=== PATIENT | male | born 1980 | race Caucasian/White ===

== ENCOUNTER 2022-02-09 14:18 | Emergency (ER) | payer OTHER, SELFPAY ==
[2022-02-09 14:36] VITALS: BP 178/105; PULSE 91; RESP 18; TEMP 36.1; O2SAT 97; BMI 30.4
--- NOTE | 2022-02-09 15:39 | ED_ITS ---
HPI - Eye Problem General: Chief complaint: Eye Problems Stated complaint: something is right eye Time Seen by Provider: 02/09/22 15:12 Source: patient Mode of arrival: ambulatory Limitations: no limitations History of Present Illness: Patient is a 41-year-old male who presents to ED today with a complaint of a possible foreign body to his right eye. Patient states he was power washing his mower yesterday when he felt something flick into his right eye. He has tried irrigating without success. No visual changes. No drainage. Tetanus up-to-date. chief complaint: foreign body Onset (ago): day(s) (yesterday) Onset description: sudden Duration: constant Location: right eye Eye Symptoms: foreign body sensation Place: home Severity: mild Associated symptoms: Reports no associated symptoms Treatments Prior to Arrival: irrigated eye Related Data: Patient tetanus UTD: Yes Review of Systems Eyes: Reports: eye discomfort; Denies: change in vision, blurry vision, blind spots, photophobia, eye discharge, floaters or seeing flashes PFSH ED PFSH: Medical History Anxiety disorder Depressive disorder History of deviated nasal septum HTN (hypertension) Social History Alcohol intake: current Alcohol intake frequency: few times a month Marital status: Marital status details: 10 YEARS 2 CHILDREN AGES 22 AND 8 Number of children: 2 Current occupational status: employed Physical Exam Const: COMMON NORMALS: no acute distress, average body habitus, patient oriented x3, no limitations, healthy appearing, alert and well nourished GENERAL APPEARANCE: cooperative Eye: COMMON NORMALS: Equal, round and reactive pupils present, EOMs intact bilaterally and no scleral icterus GENERAL EYE: normal light reflex VISUAL ACUITY: Yes acuity normal PERIORBITAL: periorbital findings normal EYELID: eyelids normal CONJUNCTIVA: Yes conjunctival abnormal (mild injection R eye) SCLERA: sclerae normal CORNEA: Yes fluorescein used (pt has a few very small punctate areas of stain uptake on cornea) and other (otherwise normal) PUPIL: Yes Equal, round and reactive pupils present DIRECT OPHTHALMOSCOPY: Yes normal light reflex Neuro: COMMON NORMALS: patient oriented x3 SENSORIUM/ORIENTATION: Yes alert Course Vital Signs: Vital signs: Vital Signs Temperature 97.0 F L 02/09/22 14:36 Pulse Rate 91 02/09/22 14:36 Respiratory Rate 18 02/09/22 14:36 Blood Pressure 178/105 02/09/22 14:36 Pulse Oximetry 97 02/09/22 14:36 MDM - Eye Problem Medical Decision Making Patient is not having any visual changes. He has no evidence for globe injury/rupture. Fluorescein eye stain shows some small punctate possible corneal abrasions. Will place patient on erythromycin ointment. Recommend follow-up with ophthalmology in 48 hours if symptoms or not improving. He needs to return to the emergency department immediately for any changes in vision/vision loss. Discharge Plan Discharge Patient Disposition: Home Clinical Impression: Corneal abrasion Qualifiers: Encounter type: initial encounter Laterality: right Qualified Code(s): S05.01XA - Injury of conjunctiva and corneal abrasion without foreign body, right eye, initial encounter Condition: Stable Prescriptions: New erythromycin 5 mg/gram (0.5 %) ointment 1 applic ophthalmic (eye) Q4H 7 Days Qty: 1 0RF No Action multivitamin Tablet 1 tab PO DAILY 0RF oxycodone-acetaminophen [Percocet] 5-325 mg tablet 1 tab PO Q6H PRN (Reason: painful procedure) 5 Days Qty: 20 0RF diazepam 10 mg tablet 10 mg PO ONCE Qty: 1 0RF Rx Instructions: 1 hour before procedure cholecalciferol (vitamin D3) 50 mcg (2,000 unit) capsule 50 mcg PO DAILY 0RF Discharge Orders: Discharge ED (Routine); Ordered 02/09/22 Ordered By: Kamini Doyle Referrals: Darell Strong DO [Primary Care Provider] - Patient Instructions: Corneal Abrasion (DC) Coding Level of Care Code ED Decorative Cutting Machine Tender for Chg Fwd Exam Expanded Problem Focused
[2022-02-09] MEDS: eye irrigation 30 mL Btl EYE-RIGHT (16:01)
[2022-02-09] MEDS: fluorescein 1 mg Strip EYE-RIGHT (16:02)
[2022-02-09] MEDS: tetracaine 0.5% Op Soln 4 mL Btl 1 DROP EYE-RIGHT (16:02)
[2022-02-09] MEDS: erythromycin Op Oint 1 gm 1 APPLIC EYE-RIGHT (16:27)
== END 2022-02-09 16:30 | disposition home or self-care (01) ==
PROVIDERS: Emergency Provider Physician Assistant; PCP Emergency Medicine Emergency Medical Services
DX: S05.01XA Injury of conjunctiva and corneal abrasion without foreign body, right eye, initial encounter (principal); X58.XXXA Exposure to other specified factors, initial encounter; Y93.89 Activity, other specified
CPT/HCPCS: 99283